=== PATIENT | male | born 1945 | race Caucasian/White ===

== ENCOUNTER 2021-05-08 05:28 | Day surgery (SDC) | payer OTHER ==
[2021-05-07 15:29] VITALS: BMI 32.2
[2021-05-08] MEDS ORDERED: DEXAMETHASONE SOD PHOSPHATE 4 MG/1 ML VIAL ONE (07:18)
[2021-05-08] MEDS ORDERED: LIDOCAINE HCL/PF 2% SDV 5ML VIAL ONE (07:18)
[2021-05-08] MEDS ORDERED: PROPOFOL 20 ML ONE (07:18)
[2021-05-08] MEDS ORDERED: MIDAZOLAM HCL 2 MG/2 ML SINGLE DOSE VIAL ONE (07:19)
[2021-05-08] MEDS ORDERED: ceFAZolin 2 GRAM PREMIX BAG IVPB ONE (07:50)
[2021-05-08] MEDS ORDERED: GENTAMICIN SO4 80 MG/2 ML VIAL IVPB ONE (07:55)
[2021-05-08] MEDS ORDERED: ceFAZolin SODIUM 1 GM VIAL ONE (07:56)
[2021-05-08] MEDS ORDERED: GENTAMICIN SO4 80 MG/2 ML VIAL ONE (07:59)
[2021-05-08] MEDS ORDERED: FUROSEMIDE 40 MG/4 ML INJECTABLE VIAL ONE (08:09)
[2021-05-08] MEDS ORDERED: IOVERSOL 300 MG/ML ML IV ONE (08:10)
[2021-05-08] MEDS ORDERED: oxyCODONE HCL 5 MG TABLET PO PRN (08:53)
[2021-05-08] MEDS ORDERED: DEXTROSE 5%-0.45% SALINE 1,000 ML IV SCH (09:00)
[2021-05-08] MEDS ORDERED: oxyCODONE HCL 5 MG TABLET ONE (09:53)
[2021-05-08 12:24] VITALS: BP 130/72; PULSE 70
[2021-05-08 12:34] VITALS: TEMP 97.9
== END 2021-05-08 10:28 | disposition home or self-care (01) ==
LOC: JASU-SURG 05:28
PROVIDERS: ATTEND Urology
PROC: 0TC38ZZ Extirpation of Matter from Right Kidney Pelvis, Via Natural or Artificial Opening Endoscopic (ICD-10-PCS; principal; 2021-05-08 07:30)
PROC: 0T768DZ Dilation of Right Ureter with Intraluminal Device, Via Natural or Artificial Opening Endoscopic (ICD-10-PCS; 2021-05-08 07:30)
PROC: BT1DYZZ Fluoroscopy of Right Kidney, Ureter and Bladder using Other Contrast (ICD-10-PCS; 2021-05-08 07:30)
DX: N20.0 Calculus of kidney (principal); E11.9 Type 2 diabetes mellitus without complications; I10 Essential (primary) hypertension; Z79.84 Long term (current) use of oral hypoglycemic drugs
CPT/HCPCS: 36415; 76000-TC-FY; 82360; 82962; 88300-TC; 94760

== ENCOUNTER 2024-08-09 10:43 | Observation (INO) | payer OTHER ==
[2024-08-09 12:10] LABS: ABSOLUTE IMMATURE GRANULOCYTES 0.04 x10^3/uL (0.0-0.031); BASOPHILS # 0.03 x10^3/uL (0.01-0.08); HEMATOCRIT 41.5 % (40.1-51.0); HEMOGLOBIN 13.5 g/dL (13.7-17.5); MCHC 32.5 g/dl (32.3-36.5); MEAN CELL VOLUME 87.9 fl (79.0-92.2); MEAN PLT VOLUME 9.8 fl (9.4-12.4); MONOCYTE # 0.29 x10^3/uL (0.30-0.82); MONOCYTE % 3.2 % (5.3-12.2); PLATELET COUNT # 233 x10^3/uL (163-337)
[2024-08-09 12:28] LABS: POTASSIUM 4.2 mmol/L (3.5-5.1)
[2024-08-09 12:30] LABS: CALCIUM 9.3 mg/dL (8.5-10.1)
[2024-08-09 12:31] LABS: BLOOD UREA NITROGEN 19.8 mg/dL (7-18)
[2024-08-09 12:35] LABS: TOT PROT 7.5 g/dl (6.4-8.2)
[2024-08-09 12:36] LABS: BILIRUBIN,TOTAL 0.4 mg/dL (0.2-1)
[2024-08-09] MEDS ORDERED: MECLIZINE HCL 25 MG TABLET (FP) ONE (12:36)
[2024-08-09 12:48] LABS: INR 1.04 (0.83-1.09); PROTHROMBIN TIME (PATIENT) 11.3 SEC (9.7-13.0)
[2024-08-09] MEDS: MECLIZINE HCL 25 MG TABLET (FP) PO ONE (12:48)
[2024-08-09] MEDS: SODIUM CHLORIDE 1,000 ML IV SCH (12:48)
[2024-08-09 12:51] LABS: ACTIVATED PTT 26.6 SECONDS (25.2-36.5)
[2024-08-09 15:54] LABS: EPI CELLS 2 /uL (0-25.1); HYALINE CASTS 0 /uL (0-3.1); URINE APPEARANCE CLEAR; URINE BACTERIA 5 /uL (0-1359); URINE BILIRUBIN NEGATIVE (NEGATIVE); URINE COLOR YELLOW; URINE GLUCOSE (UA) NEGATIVE (NEGATIVE); URINE KETONE TRACE (NEGATIVE); URINE LEUK ESTERASE NEGATIVE (NEGATIVE); URINE NITRITE NEGATIVE (NEGATIVE); URINE PROTEIN NEGATIVE (NEGATIVE); URINE RBC 217 /uL (0-23.9); URINE UROBILINOGEN 0.2 mg/dL (0.2-1.0); URINE WBC 5 /uL (0-25.8)
[2024-08-09] MEDS ORDERED: MECLIZINE HCL 25 MG TABLET (FP) PO PRN (18:18)
[2024-08-09] MEDS ORDERED: ATORVASTATIN CA 20 MG TABLET (FP) ONE (22:49)
[2024-08-10] MEDS: ATORVASTATIN CA 20 MG TABLET (FP) PO SCH (01:32)
[2024-08-10 02:59] VITALS: BMI 30.9
[2024-08-10] MEDS: ENOXAPARIN NA (PORCINE) 40 MG/0.4 ML DISP.SYRIN SQ SCH (10:15)
[2024-08-10] MEDS: ASPIRIN 81 MG CHEWABLE TABLETS PO SCH (10:15)
[2024-08-10] MEDS: RAMIPRIL 5 MG CAPSULE PO SCH (10:15)
[2024-08-10] MEDS: amLODIPine BESYLATE 2.5 MG TABLET (FP) PO SCH (10:15)
[2024-08-10] MEDS: metFORMIN HCL 500 MG TABLET (FP) PO ONE (10:50)
[2024-08-10] MEDS: FAMOTIDINE 20 MG TABLET PO SCH (10:50)
[2024-08-10] MEDS: CARBAMIDE PEROXIDE 6.5% OTIC 15 ML BOTTLE AU SCH (11:38)
[2024-08-10] MEDS: metFORMIN HCL 500 MG TABLET (FP) PO SCH (21:12)
[2024-08-11 07:08] LABS: HEMATOCRIT 42.9 % (40.1-51.0); HEMOGLOBIN 14.1 g/dL (13.7-17.5); MCHC 32.9 g/dl (32.3-36.5); MEAN CELL VOLUME 87.6 fl (79.0-92.2); PLATELET COUNT # 257 x10^3/uL (163-337); RDW 12.2 % (12.2-16.6)
[2024-08-11 07:22] LABS: POTASSIUM 4.3 mmol/L (3.5-5.1)
[2024-08-11 07:38] LABS: CALCIUM 9.5 mg/dL (8.5-10.1)
[2024-08-11 07:39] LABS: ALBUMIN 3.9 g/dl (3.4-5.0); BLOOD UREA NITROGEN 21.4 mg/dL (7-18)
[2024-08-11 07:42] LABS: BILIRUBIN,TOTAL 0.3 mg/dL (0.2-1); CREATININE 1.1 mg/dL (0.55-1.3); TOT PROT 7.4 g/dl (6.4-8.2)
[2024-08-11] MEDS: amLODIPine BESYLATE 5 MG TABLET (FP) PO SCH (10:09)
[2024-08-11 11:14] VITALS: BP 159/90; PULSE 103; RESP 17; TEMP 98.1
== END 2024-08-11 10:54 | disposition home or self-care (01) ==
LOC: JER 10:43 → JERBED 20:10 → J4W 08-10 02:21
PROVIDERS: ADMIT Internal Medicine; ATTEND Internal Medicine
PROC: 3E023GC Introduction of Other Therapeutic Substance into Muscle, Percutaneous Approach (ICD-10-PCS; principal; 2024-08-09)
DX: H81.09 Meniere's disease, unspecified ear (principal); G35 Multiple sclerosis; E11.9 Type 2 diabetes mellitus without complications; H93.19 Tinnitus, unspecified ear; I10 Essential (primary) hypertension; E78.5 Hyperlipidemia, unspecified; K27.9 Peptic ulcer, site unspecified, unspecified as acute or chronic, without hemorrhage or perforation; H54.40 Blindness, one eye, unspecified eye; G51.0 Bell's palsy; Z87.891 Personal history of nicotine dependence; Z85.53 Personal history of malignant neoplasm of renal pelvis; Z90.5 Acquired absence of kidney
CPT/HCPCS: 36415; 70450-TC; 70551-TC; 80053; 80061; 81003; 82550; 82962; 83036; 84484; 85025; 85027; 85610; 85730; 86850; 86900; 86901; 93005; 93010; 96372; 97116-GP; 97161-GP; 99285-25; G0378